=== PATIENT | female | born 1965 ===

== ENCOUNTER 2025-05-09 18:59 | Inpatient (IN) | payer SELFPAY ==
[~2025-05-09] VITALS: Ht 165.1 cm; Wt 47.7 kg
[2025-05-09 19:34] LABS: PLATELET COUNT (AUTO) 353 K/uL (179-408); RED BLOOD CELL COUNT(AUTO) 3.31 MIL/uL (3.63-4.92); RED CELL DISTRIBUTION WIDTH 16.8 % (12.3-17.7); WHITE BLOOD COUNT (AUTO) 6.1 K/uL (3.8-11.8)
[2025-05-09 19:41] LABS: CREATININE 0.5 mg/dL (0.6-1.3); SODIUM SERUM 143.0 mmol/L (136-145); UREA NITROGEN, BLOOD 9.0 mg/dL (7-18)
[2025-05-09 19:47] LABS: ASPARTATE AMINOTRANSFERASE 140.0 U/L (15-37); TOTAL PROTEIN, SERUM 8.1 g/dL (6.4-8.2)
[2025-05-09 19:57] LABS: ETHANOL 436.0 MG/DL (0-10)
[2025-05-09] MEDS ORDERED: DIAZEPAM 10 MG/2 ML DISP.SYRIN ONE (20:05)
[2025-05-09] MEDS: IV NORMAL SALINE 1000 ML BAG IV ONE (20:11)
[2025-05-09] MEDS: DIAZEPAM 10 MG/2 ML DISP.SYRIN IV ONE (20:11)
[2025-05-09] MEDS ORDERED: ACETAMINOPHEN 325 MG TABLET PO PRN (20:45)
[2025-05-09] MEDS ORDERED: IV 1/2NS 1000 ML 1,000 ML IV PRN (20:45)
[2025-05-09] MEDS ORDERED: REMEDY ESSENTIAL ZINC PASTE 113 GM TP PRN (20:45)
[2025-05-09] MEDS ORDERED: ONDANSETRON 4 MG/2 ML VIAL IV PRN (20:45)
[2025-05-09] MEDS ORDERED: MAGNESIUM HYDROXIDE 30 ML LIQUID UDC PO PRN (20:45)
[2025-05-09] MEDS ORDERED: CHLORDIAZEPOXIDE HCL 25 MG CAPSULE PO PRN (20:45)
[2025-05-09 23:00] VITALS: BP 136/79
[2025-05-09] MEDS ORDERED: ENOXAPARIN SODIUM 40 MG/0.4 ML DISP.SYRIN SQ ONE (23:01)
[2025-05-09] MEDS ORDERED: LORAZEPAM 2 MG/1 ML VIAL ONE (23:02)
[2025-05-09] MEDS: LORAZEPAM 2 MG/1 ML VIAL IV ONE (23:04)
[2025-05-09] MEDS: ENOXAPARIN SODIUM 40 MG/0.4 ML DISP.SYRIN SQ SCH (23:05)
[2025-05-10] VITALS: BP 97/54; TEMP 98.7; O2SAT 93
[2025-05-10 04:00] VITALS: BP 102/56; TEMP 98.7; O2SAT 94
[2025-05-10] MEDS: PANTOPRAZOLE SODIUM 40 MG TABLET.DR PO SCH (06:32)
[2025-05-10 06:54] LABS: PLATELET COUNT (AUTO) 292 K/uL (179-408); RED BLOOD CELL COUNT(AUTO) 2.93 MIL/uL (3.63-4.92); RED CELL DISTRIBUTION WIDTH 16.3 % (12.3-17.7); WHITE BLOOD COUNT (AUTO) 4.0 K/uL (3.8-11.8)
[2025-05-10 07:08] LABS: CREATININE 0.4 mg/dL (0.6-1.3); SODIUM SERUM 140 mmol/L (136-145); UREA NITROGEN, BLOOD 10 mg/dL (7-18)
[2025-05-10 07:34] VITALS: BP 130/61; TEMP 98.5; O2SAT 95
[2025-05-10] MEDS: FOLIC ACID 1 MG in IV DEXTROSE 5% 50 ML IV SCH (09:14)
[2025-05-10] MEDS: THIAMINE HCL INJ 100 MG in IV DEXTROSE 5% 50 ML IV SCH (09:50)
[2025-05-10] MEDS: POTASSIUM CHLORIDE 20 MEQ TAB.PRT.SR PO ONE (10:39)
[2025-05-10] MEDS ORDERED: IBUP-2314 PO (11:01)
[2025-05-10] MEDS ORDERED: LOPE2CAP40 PO (11:01)
[2025-05-10 11:28] LABS: *BILIRUBIN,URIN NEGATIVE (NEGATIVE); *BLOOD, URINE NEGATIVE (NEGATIVE); *CLARITY,URINE CLEAR (CLEAR); *COLOR,URINE YELLOW (YELLOW); *KETONES,URINE TRACE (NEGATIVE); *PROTEIN,URINE TRACE (NEGATIVE); *UROBILINOGEN,URINE 0.2 E.U./dl (NORMAL); LEUKOCYTE ESTERASE ,URINE NEGATIVE (NEGATIVE); NITRITE, URINE POSITIVE (NEGATIVE); UGLUCOSE NEGATIVE (NEGATIVE)
[2025-05-10 11:34] LABS: *AMPHETAMINE, URINE NEGATIVE (NEGATIVE); *BARBITURATE, URINE NEGATIVE (NEGATIVE); *BENZODIAZEPINE, URINE POSITIVE (NEGATIVE); *CANNABINOID, URINE POSITIVE (NEGATIVE); *COCCAINE, URINE NEGATIVE (NEGATIVE); *OPIATE, URINE NEGATIVE (NEGATIVE); *PHENCYCLIDINE SCREEN,URINE NEGATIVE (NEGATIVE); FENTANYL, URINE NEGATIVE (NEGATIVE)
[2025-05-10 11:36] VITALS: BP 114/67; TEMP 99; O2SAT 98
[2025-05-10 11:37] LABS: SQUAMOUS EPITHELIAL CELL,UR NONE SEEN /HPF (NONE SEEN)
[2025-05-10 15:49] VITALS: BP 129/74; TEMP 98.3; O2SAT 100
[2025-05-10] MEDS: ENSURE ENLIVE (VAN) 240 ML LIQUID PO SCH (16:31)
[2025-05-10 19:20] VITALS: BP 106/57; TEMP 98.8; O2SAT 98
[2025-05-10] MEDS: ENOXAPARIN SODIUM 40 MG/0.4 ML DISP.SYRIN SQ SCH (21:05)
[2025-05-11] MEDS: LORAZEPAM 0.5 MG TABLET PO PRN (06:07)
[2025-05-11 06:18] VITALS: BP 124/72; TEMP 98.6; O2SAT 96
[2025-05-11 07:27] VITALS: BP 131/72; TEMP 97.9; O2SAT 97
[2025-05-11] MEDS: NICOTINE 21 MG/24HR PATCH TD SCH (08:48)
[2025-05-11] MEDS: THIAMINE HCL 100 MG TABLET PO SCH (08:50)
[2025-05-11] MEDS: FOLIC ACID 1 MG TABLET PO SCH (08:51)
[2025-05-11 11:52] VITALS: BP 112/68; TEMP 97.8; O2SAT 98
[2025-05-11 16:03] VITALS: BP 124/66; TEMP 98
[2025-05-11 19:40] VITALS: BP 121/56; TEMP 98.4; O2SAT 96
[2025-05-12 06:51] VITALS: BP 123/72; TEMP 98.5; O2SAT 98
[2025-05-12] MEDS ORDERED: FOLI1TAB94 PO (07:33)
[2025-05-12] MEDS ORDERED: THIA100T78 PO (07:33)
[2025-05-12] MEDS: SULFAMETH/TRIMETH 800/160 MG TABLET PO SCH (09:07)
[2025-05-12 11:59] VITALS: BP 141/84; TEMP 97.9; O2SAT 99
== END 2025-05-12 13:10 | disposition home or self-care (01) | DRG 917 ==
LOC: ER 19:08 → TELE3 20:40 → MEDSURG3 05-10 11:02
PROVIDERS: ADMIT Student in an Organized Health Care Education/Training Program; ATTEND Internal Medicine
DX: T51.0X1A Toxic effect of ethanol, accidental (unintentional), initial encounter (principal); G92.8 Other toxic encephalopathy; Z59.02 Unsheltered homelessness; K70.10 Alcoholic hepatitis without ascites; Y90.8 Blood alcohol level of 240 mg/100 ml or more; E87.6 Hypokalemia; Y92.512 Supermarket, store or market as the place of occurrence of the external cause
CPT/HCPCS: 36415; 83735; 84100; 85025; 87077; 87086; G0378; G0480; J1650; J2060; J3360; J3411; J3490